=== PATIENT | male | born 2000 | race Hispanic/Latino ===

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

== ENCOUNTER 2021-09-23 22:01 | Emergency (ER) | payer SELFPAY ==
[~2021-09-23 22:01] MED LIST changes: +CIPROFLOXACN500 MG PO; +KEFLEX500 M1 PO
== END 2021-09-23 22:56 | disposition left against medical advice (07) | DRG 951 ==
LOC: ED 22:01 → LWOBS 22:56
DX: Z53.21 Procedure and treatment not carried out due to patient leaving prior to being seen by health care provider (principal)